=== PATIENT | male | born 1970 | race Caucasian/White ===

== ENCOUNTER → 2018-12-09 11:04 | Outpatient (CLI) | payer OTHER, SELFPAY | PROVIDERS: Visit Provider Physician Assistant | DX: R68.89 Other general symptoms and signs (principal) | CPT/HCPCS: 87400 ==

== ENCOUNTER → 2019-01-10 19:47 | Outpatient (CLI) | payer OTHER, SELFPAY | PROVIDERS: Visit Provider Physician Assistant | DX: R31.9 Hematuria, unspecified (principal) | CPT/HCPCS: 87086 ==

== ENCOUNTER 2019-01-11 03:25 | Emergency (ER) | payer OTHER, SELFPAY ==
[2019-01-11 03:39] VITALS: BP 166/92; PULSE 58; RESP 18; TEMP 36.6; O2SAT 99; BMI 29.0
--- NOTE | 2019-01-11 03:40 | ED.MALEGU ---
HPI - Male Genitourinary General Chief complaint: Urogenital-Male Stated complaint: blood in urine, pain in lower right abd Time Seen by Provider: 01/11/19 03:27 Source: patient and family Mode of arrival: ambulatory Limitations: no limitations History of Present Illness HPI Narrative: 48-year-old nonsmoker with history of kidney stones presents to the emergency department with family in the chief complaint of worsening right flank pain. The patient was seen and evaluated this evening at the walk-in clinic with chief complaint of hematuria. At the time the patient had no pain in his flank perhaps only bit of nausea. He denies fever chills and is not dizzy nor weak or lightheaded. His flank pain is rather persistent but seems to be building. It is worse when he moves and improves with rest. It does on some level remind him of prior kidney stones. Patient had urine noting leukocytes and was placed on 5 days of ciprofloxacin Onset (ago): hour(s) Duration: progressively worsening Location: right flank Severity: moderate Quality: aching Relieving factors: rest Exacerbating factors: palpation and movement Reports blood in urine Related Data Previous Rx's Medication Instructions Recorded ciprofloxacin 500 mg tablet 500 mg PO BID 5 Days #10 tab 01/10/19 ciprofloxacin HCl 500 mg PO BID #10 tab 01/11/19 hydrocodone-acetaminophen 1 tab PO Q4-6H PRN #10 tab 01/11/19 ketorolac 10 mg PO Q6H PRN #14 tab 01/11/19 ondansetron 4 mg PO TID-QID PRN #10 tab 01/11/19 tamsulosin [Flomax] 0.4 mg PO DAILY #10 cap 01/11/19 Allergies Allergy/AdvReac Type Severity Reaction Status Date / Time No Known Drug Allergies Allergy Verified 01/10/19 19:39 Review of Systems Constitutional Denies chills, Denies fever(s), Denies lethargy and Denies weakness Eyes Denies change in vision, Denies eye discharge, Denies irritation and Denies loss of vision ENT Ears, Nose, Mouth, and Throat: Denies change in voice, Denies neck pain and Denies sore throat Cardiovascular Denies chest pain, Denies irregular heart rhythm, Denies lightheadedness, Denies palpitations, Denies dyspnea, Denies dyspnea on exertion and Denies orthopnea Respiratory Denies cough, Denies dyspnea, Denies dyspnea on exertion and Denies wheezing Gastrointestinal Gastrointestinal: Denies abdominal pain, Denies change in bowel habits, Denies diarrhea, Denies nausea and Denies vomiting Genitourinary Reports hematuria, Reports flank pain, Denies urinary incontinence and Denies urinary urgency Musculoskeletal Reports back pain and Denies neck pain Integumentary/Breasts Denies pruritus, Denies erythema, Denies rash and Denies wounds Neurologic Denies confusion, Denies loss of vision and Denies weakness Psychiatric Denies anxiety, Denies confusion, Denies depression, Denies homicidal ideation and Denies suicidal ideation Endocrine Denies palpitations Hematologic/Lymphatic Denies easy bruising Allergic/Immunologic Denies wheezing PFSH Social History Smoking Status: Never smoker Social History Smoking Status: Never smoker Exam Narrative Exam Narrative: GENERAL: This is a well-nourished, well-developed patient, in mild distress. HEAD: Atraumatic. Normocephalic. No temporal or scalp tenderness. EYES: Pupils equal round and reactive. Extraocular motions intact. No scleral icterus. No injection or drainage. ENT: Nose without bleeding, purulent drainage or septal hematoma. Throat without erythema, tonsillar hypertrophy or exudate. Uvula midline. Airway patent. NECK: Trachea midline. No JVD or lymphadenopathy. Supple, nontender, no meningeal signs. CARDIOVASCULAR: Regular rate and rhythm without murmurs, gallops, or rubs. RESPIRATORY: Clear to auscultation. Breath sounds equal bilaterally. No wheezes, rales, or rhonchi. GASTROINTESTINAL: Abdomen soft, non-tender, nondistended. No hepato-splenomegaly, or palpable masses. No guarding. EXTREMITIES: No clubbing, cyanosis, or edema. No joint tenderness, effusion, or edema noted. BACK: Nontender without deformity or crepitance. Right flank pain SKIN: No rash or erythema. Initial Vital Signs Initial Vital Signs: Vital Signs Temperature 98 F 01/11/19 03:39 Pulse Rate 58 L 01/11/19 03:39 Respiratory Rate 18 01/11/19 03:39 Blood Pressure 166/92 H 01/11/19 03:39 Pulse Oximetry 99 01/11/19 03:39 Course Orders Ordered: ED Orders 01/11/19 04:09 CT kidney ureter bladder (KUB) Stat 01/11/19 04:10 Basic Metabolic Panel Stat Complete Blood Count AUTO DIFF Stat Discontinued Medications Sodium Chloride (Normal Saline 0.9%) 1,000 mls @ 1,000 mls/hr IV BOLUS ONE Stop: 01/11/19 04:55 Last Infusion: 01/11/19 05:05 Dose: 1,000 mls/hr Admin: 01/11/19 04:05 Dose: 1,000 mls/hr Ketorolac Tromethamine (Toradol) 15 mg IV NOW ONE Stop: 01/11/19 03:57 Last Admin: 01/11/19 04:05 Dose: 15 mg Vital Signs - 8 hr 01/11/19 03:39 01/11/19 05:05 Temperature 98 F Pulse Rate 58 L 59 L Respiratory Rate 18 15 Blood Pressure 166/92 H 154/92 H Pulse Oximetry 99 100 MDM - Male Genitourinary Lab Data Result diagrams: 01/11/19 04:10 01/11/19 04:10 Lab Results 01/11/19 01/11/19 Range/Units 04:10 04:10 WBC 6.7 (4.5-11.0) X10^3/uL RBC 4.80 (4.5-5.9) X10^6/uL Hgb 14.9 (13.5-17.5) g/dL Hct 43.4 (41-53) % MCV 90.4 (80-100) fL MCH 31.1 (26-34) PG MCHC 34.4 (30-36) % RDW 13.9 (11.6-14.8) % Plt Count 161 (150-400) X10^3/uL Neut % (Auto) 61.5 (50-75) % Lymph % (Auto) 25.0 (25-40) % Esmeralda % (Auto) 10.6 (3-14) % Eos % (Auto) 2.3 (2-4) % Baso % (Auto) 0.6 (0-2) % Neut # (Auto) 4100 (9821-7449) /uL Lymph # (Auto) 1700 (9260-6588) /uL Esmeralda # (Auto) 700 (0-900) /uL Eos # (Auto) 200 (0-450) /uL Baso # (Auto) 0 (0-100) /uL Sodium 141 (137-145) mmol/L Potassium 3.9 (3.4-5.1) mmol/L Chloride 105 (98-107) mmol/L Carbon Dioxide 28 (22-32) mmol/L BUN 12 (9-20) mg/dL Creatinine 1.00 (0.66-1.25) mg/dL Estimated GFR > 60.0 (>60) mL/min BUN/Creatinine Ratio 12.0 (6-22) Glucose 105 H (70-100) mg/dL Calcium 9.5 (8.4-10.2) mg/dL Imaging Data CT scan - abdomen: Radiologist's impression: 2 mm obstructing stone in the right distal ureter Discharge Plan Departure Patient Disposition: Home Clinical Impression: Kidney calculi Urinary tract infection Qualifiers: Urinary tract infection type: site unspecified Hematuria presence: with hematuria Qualified Code(s): N39.0 - Urinary tract infection, site not specified Discharge Date/Time: 01/11/19 05:05 Interventions: ED Discharge Assessment Last Done: 01/11/19 05:05 Instructions: DI for Kidney Stones Activity Restrictions/Additional Instructions: *You have been diagnosed with [ kidney stone and UTI ] *What to do: *Take medications as directed: Multiple prescriptions have been electronically transmitted to [facility] at your request *Follow up with your primary care provider in 2-3 days, call for an appointment. Let them know you were seen in the Emergency Department and that we ask that you be seen in follow up *Return to ER if you should have any new, worsening or concerning symptoms You have been prescribed narcotic medications. While on these medications you cannot drive or operate heavy machinery. Additionally you cannot sign legal documents or perform any duties such as this. 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 Please understand that we cannot provide further refills of narcotics or controlled substances through the ED and your pain management will need to be through your Primary Care Provider Prescriptions: New tamsulosin [Flomax] 0.4 mg capsule 0.4 mg PO DAILY Qty: 10 RF: 0 hydrocodone-acetaminophen 5-325 mg tablet 1 tab PO Q4-6H PRN (Reason: pain) Qty: 10 RF: 0 ketorolac 10 mg tablet 10 mg PO Q6H PRN (Reason: pain) Qty: 14 RF: 0 ondansetron 4 mg tablet,disintegrating 4 mg PO TID-QID PRN (Reason: nausea and vomiting) Qty: 10 RF: 0 ciprofloxacin HCl 500 mg tablet 500 mg PO BID Qty: 10 RF: 0 No Action ciprofloxacin HCl 500 mg tablet 500 mg PO BID 5 Days Qty: 10 RF: 0
[2019-01-11] MEDS: KETOROLAC 60 MG/2 ML VIAL 15 MG IV (04:05)
[2019-01-11] MEDS: SODIUM CHLORIDE 0.9% 1,000 ML 1000 ML IV (04:05)
--- NOTE | 2019-01-11 04:09 | DI.CT.S_ITS ---
PROCEDURE: CT KIDNEY URETER BLADDER (KUB) INDICATIONS: severe Right lower quadrant/flank pain TECHNIQUE: Noncontrast 5 mm thick sections acquired from the diaphragms to the symphysis. 5 mm thick coronal and sagittal reformats were then performed. For radiation dose reduction, the following was used: automated exposure control, adjustment of mA and/or kV according to patient size. COMPARISON: None. FINDINGS: Image quality: Excellent. Lung bases: No pulmonary infiltrate. There is a 3 mm subpleural lung nodule in the left lower lobe (series 3 image 1). Heart size is normal. There is a tiny hiatal hernia. Urinary system: A 2.5 mm stone is present in the distal right ureter at the uterovesical junction. There is mild right hydronephrosis and perinephric stranding. There are 3 2-4 mm nonobstructive stone in the left kidney. Both kidneys are normal in size. Both ureters appear non-dilated throughout their expected courses. Bladder wall thickness is normal; no calcified bladder stones. Enlarged prostate. Other solid organs: Liver is normal in size. Gallbladder is normal. Pancreas is normal in contours. Spleen is normal in size. A small splenule is noted. No adrenal nodules. Peritoneum and bowel: Unenhanced bowel loops demonstrate normal wall thickness and caliber. The appendix is normal. No free fluid or air. Mild mesenteric stranding. Nodes and vessels: No retroperitoneal or mesenteric adenopathy by size criteria. Aorta and inferior vena cava are normal in caliber. Abdominal wall: No ventral hernias. Pelvis: No free pelvic fluid. No inguinal hernias or adenopathy. Bones: No suspicious bony lesions. No vertebral body compression fractures. IMPRESSION: 1. A 2.5 mm nonobstructive stone in the distal right ureter at the ureterovesical junction. There is mild right hydronephrosis and perinephric stranding. 2. Three small nonobstructive left renal calculi. No left hydronephrosis. 3. Normal appendix. 4. A 3 mm subpleural nodule in the left lower lobe. Please see enclosed followup recommendation. 5. Enlarged prostate. No significant discrepancy with the night warehouse selector radiology preliminary report. Fleischner Society criteria for SOLID lung nodule followup. Nodule size (mm)Low-risk patientHigh-risk patient?4No follow-up neededFollow-up at 12 mo; if no change, no further follow-up>[id number] CT at 12 mo; if no change, no further follow-up needed.Initial follow-up CT at 6-12 mo, then 18-24 mo if no change. >6-8Initial follow-up CT at 6-12 mo, then 18-24 mo if no change. Initial follow-up CT at 3-6 mo, then 9-12 mo and 24 mo if no change. >8Follow-up CT at 3, 9, 24 mo. Or PET and/or biopsy.Same as for low-risk pts. Dictated by: James Thakur M.D. on 01/11/2019 at 7:57 Approved by: James Thakur M.D. on 01/11/2019 at 8:24
--- NOTE | 2019-01-11 04:15 | ED_ITS ---
HPI - Male Genitourinary General Chief complaint: Urogenital-Male Stated complaint: blood in urine, pain in lower right abd Time Seen by Provider: 01/11/19 03:27 Source: patient and family Mode of arrival: ambulatory Limitations: no limitations History of Present Illness HPI Narrative: 48-year-old nonsmoker with history of kidney stones presents to the emergency department with family in the chief complaint of worsening right flank pain. The patient was seen and evaluated this evening at the walk-in clinic with chief complaint of hematuria. At the time the patient had no pain in his flank perhaps only bit of nausea. He denies fever chills and is not dizzy nor weak or lightheaded. His flank pain is rather persistent but seems to be building. It is worse when he moves and improves with rest. It does on some level remind him of prior kidney stones. Patient had urine noting leukocytes and was placed on 5 days of ciprofloxacin Onset (ago): hour(s) Duration: progressively worsening Location: right flank Severity: moderate Quality: aching Relieving factors: rest Exacerbating factors: palpation and movement Reports blood in urine Related Data Previous Rx's Medication Instructions Recorded ciprofloxacin 500 mg tablet 500 mg PO BID 5 Days #10 tab 01/10/19 ciprofloxacin HCl 500 mg PO BID #10 tab 01/11/19 hydrocodone-acetaminophen 1 tab PO Q4-6H PRN #10 tab 01/11/19 ketorolac 10 mg PO Q6H PRN #14 tab 01/11/19 ondansetron 4 mg PO TID-QID PRN #10 tab 01/11/19 tamsulosin [Flomax] 0.4 mg PO DAILY #10 cap 01/11/19 Allergies Allergy/AdvReac Type Severity Reaction Status Date / Time No Known Drug Allergies Allergy Verified 01/10/19 19:39 Review of Systems Constitutional Denies chills, Denies fever(s), Denies lethargy and Denies weakness Eyes Denies change in vision, Denies eye discharge, Denies irritation and Denies loss of vision ENT Ears, Nose, Mouth, and Throat: Denies change in voice, Denies neck pain and Denies sore throat Cardiovascular Denies chest pain, Denies irregular heart rhythm, Denies lightheadedness, Denies palpitations, Denies dyspnea, Denies dyspnea on exertion and Denies orthopnea Respiratory Denies cough, Denies dyspnea, Denies dyspnea on exertion and Denies wheezing Gastrointestinal Gastrointestinal: Denies abdominal pain, Denies change in bowel habits, Denies diarrhea, Denies nausea and Denies vomiting Genitourinary Reports hematuria, Reports flank pain, Denies urinary incontinence and Denies urinary urgency Musculoskeletal Reports back pain and Denies neck pain Integumentary/Breasts Denies pruritus, Denies erythema, Denies rash and Denies wounds Neurologic Denies confusion, Denies loss of vision and Denies weakness Psychiatric Denies anxiety, Denies confusion, Denies depression, Denies homicidal ideation and Denies suicidal ideation Endocrine Denies palpitations Hematologic/Lymphatic Denies easy bruising Allergic/Immunologic Denies wheezing PFSH Social History Smoking Status: Never smoker Social History Smoking Status: Never smoker Exam Narrative Exam Narrative: GENERAL: This is a well-nourished, well-developed patient, in mild distress. HEAD: Atraumatic. Normocephalic. No temporal or scalp tenderness. EYES: Pupils equal round and reactive. Extraocular motions intact. No scleral icterus. No injection or drainage. ENT: Nose without bleeding, purulent drainage or septal hematoma. Throat without erythema, tonsillar hypertrophy or exudate. Uvula midline. Airway patent. NECK: Trachea midline. No JVD or lymphadenopathy. Supple, nontender, no meningeal signs. CARDIOVASCULAR: Regular rate and rhythm without murmurs, gallops, or rubs. RESPIRATORY: Clear to auscultation. Breath sounds equal bilaterally. No wheezes, rales, or rhonchi. GASTROINTESTINAL: Abdomen soft, non-tender, nondistended. No hepato- splenomegaly, or palpable masses. No guarding. EXTREMITIES: No clubbing, cyanosis, or edema. No joint tenderness, effusion, or edema noted. BACK: Nontender without deformity or crepitance. Right flank pain SKIN: No rash or erythema. Initial Vital Signs Initial Vital Signs: Vital Signs Temperature 98 F 01/11/19 03:39 Pulse Rate 58 L 01/11/19 03:39 Respiratory Rate 18 01/11/19 03:39 Blood Pressure 166/92 H 01/11/19 03:39 Pulse Oximetry 99 01/11/19 03:39 Course Orders Ordered: ED Orders 01/11/19 04:09 CT kidney ureter bladder (KUB) Stat 01/11/19 04:10 Basic Metabolic Panel Stat Complete Blood Count AUTO DIFF Stat Discontinued Medications Sodium Chloride (Normal Saline 0.9%) 1,000 mls @ 1,000 mls/hr IV BOLUS ONE Stop: 01/11/19 04:55 Last Infusion: 01/11/19 05:05 Dose: 1,000 mls/hr Admin: 01/11/19 04:05 Dose: 1,000 mls/hr Ketorolac Tromethamine (Toradol) 15 mg IV NOW ONE Stop: 01/11/19 03:57 Last Admin: 01/11/19 04:05 Dose: 15 mg Vital Signs - 8 hr 01/11/19 03:39 01/11/19 05:05 Temperature 98 F Pulse Rate 58 L 59 L Respiratory Rate 18 15 Blood Pressure 166/92 H 154/92 H Pulse Oximetry 99 100 MDM - Male Genitourinary Lab Data Result diagrams: 01/11/19 04:10 01/11/19 04:10 Lab Results 01/11/19 01/11/19 Range/Units 04:10 04:10 WBC 6.7 (4.5-11.0) X10^3/uL RBC 4.80 (4.5-5.9) X10^6/uL Hgb 14.9 (13.5-17.5) g/dL Hct 43.4 (41-53) % MCV 90.4 (80-100) fL MCH 31.1 (26-34) PG MCHC 34.4 (30-36) % RDW 13.9 (11.6-14.8) % Plt Count 161 (150-400) X10^3/uL Neut % (Auto) 61.5 (50-75) % Lymph % (Auto) 25.0 (25-40) % Ashe % (Auto) 10.6 (3-14) % Eos % (Auto) 2.3 (2-4) % Baso % (Auto) 0.6 (0-2) % Neut # (Auto) 4100 (6542-4128) /uL Lymph # (Auto) 1700 (0776-5832) /uL Ashe # (Auto) 700 (0-900) /uL Eos # (Auto) 200 (0-450) /uL Baso # (Auto) 0 (0-100) /uL Sodium 141 (137-145) mmol/L Potassium 3.9 (3.4-5.1) mmol/L Chloride 105 (98-107) mmol/L Carbon Dioxide 28 (22-32) mmol/L BUN 12 (9-20) mg/dL Creatinine 1.00 (0.66-1.25) mg/dL Estimated GFR > 60.0 (>60) mL/min BUN/Creatinine Ratio 12.0 (6-22) Glucose 105 H (70-100) mg/dL Calcium 9.5 (8.4-10.2) mg/dL Imaging Data CT scan - abdomen: Radiologist's impression: 2 mm obstructing stone in the right distal urete r Discharge Plan Departure Patient Disposition: Home Clinical Impression: Kidney calculi Urinary tract infection Qualifiers: Urinary tract infection type: site unspecified Hematuria presence: with hematuria Qualified Code(s): N39.0 - Urinary tract infection, site not specified Discharge Date/Time: 01/11/19 05:05 Interventions: ED Discharge Assessment Last Done: 01/11/19 05:05 Instructions: DI for Kidney Stones Activity Restrictions/Additional Instructions: *You have been diagnosed with [ kidney stone and UTI ] *What to do: *Take medications as directed: Multiple prescriptions have been electronically transmitted to [facility] at your request *Follow up with your primary care provider in 2-3 days, call for an ap pointment. Let them know you were seen in the Emergency Department and that we ask that you be seen in follow up *Return to ER if you should have any new, worsening or concerning symptoms You have been prescribed narcotic medications. While on these medications you cannot drive or operate heavy machinery. Additionally you cannot sign legal documents or perform any duties such as this. 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 Please understand that we cannot provide further refills of narcotics or controlled substances through the ED and your pain management will need to be through your Primary Care Provider Prescriptions: New tamsulosin [Flomax] 0.4 mg capsule 0.4 mg PO DAILY Qty: 10 RF: 0 hydrocodone-acetaminophen 5-325 mg tablet 1 tab PO Q4-6H PRN (Reason: pain) Qty: 10 RF: 0 ketorolac 10 mg tablet 10 mg PO Q6H PRN (Reason: pain) Qty: 14 RF: 0 ondansetron 4 mg tablet,disintegrating 4 mg PO TID-QID PRN (Reason: nausea and vomiting) Qty: 10 RF: 0 ciprofloxacin HCl 500 mg tablet 500 mg PO BID Qty: 10 RF: 0 No Action ciprofloxacin HCl 500 mg tablet 500 mg PO BID 5 Days Qty: 10 RF: 0
[2019-01-11 04:26] LABS: Add Manual Diff / Slide Review NO; Basophils Absolute Auto 0 /uL (0-100); Basophils Percent Auto 0.6 % (0-2); Eosinophils Absolute Auto 200 /uL (0-450); Eosinophils Percent Auto 2.3 % (2-4); Hematocrit 43.4 % (41-53); Hemoglobin 14.9 g/dL (13.5-17.5); Lymphocytes Absolute Auto 1700 /uL (1100-4500); Mean Corpuscular HGB Conc 34.4 % (30-36); Mean Corpuscular Hemoglobin 31.1 PG (26-34); Mean Corpuscular Volume 90.4 fL (80-100); Monocytes Absolute Auto 700 /uL (0-900); Monocytes Percent Auto 10.6 % (3-14); Neutrophils Absolute Auto 4100 /uL (1500-7000); Neutrophils Percent Auto 61.5 % (50-75); Platelet Count 161 X10^3/uL (150-400); Red Cell Distribution Width 13.9 % (11.6-14.8); White Blood Cell Count 6.7 X10^3/uL (4.5-11.0)
[2019-01-11 04:32] LABS: Blood Urea Nitrogen 12 mg/dL (9-20); Calcium 9.5 mg/dL (8.4-10.2); Carbon Dioxide 28 mmol/L (22-32); Chloride 105 mmol/L (98-107); Estimated Glomerular Filt Rate > 60.0 mL/min (>60); Glucose 105 mg/dL (70-100); HEMOLYSIS 16 (0-50); Potassium 3.9 mmol/L (3.4-5.1); Sodium 141 mmol/L (137-145)
[2019-01-11 05:05] VITALS: BP 154/92; PULSE 59; RESP 15; O2SAT 100
--- NOTE | 2019-01-13 19:24 | PC.NURSE ---
Spoke with patient on the phone, states he had been called from [facility]. This RN could not find any record of pt being called from ED. Pt had previously been seen at the Walk-in, instructed him to call them in the morning. Also answered additional questions. Encouraged pt to be seen at by primary for a follow up. Pt happy with questions being addressed.
== END 2019-01-11 05:05 | disposition home or self-care (01) ==
PROVIDERS: Emergency Provider Emergency Medicine
DX: N20.0 Calculus of kidney (principal); N39.0 Urinary tract infection, site not specified
CPT/HCPCS: 36591; 74176; 80048; 85025; 96361; 96374; 99283; 99284; J1885

== ENCOUNTER 2019-07-12 00:26 | Emergency (ER) | payer OTHER, SELFPAY ==
[2019-07-12 00:35] VITALS: BP 183/94; PULSE 77; RESP 15; TEMP 36.8; O2SAT 96; BMI 28.1
--- NOTE | 2019-07-12 00:41 | ED.BACK ---
HPI - Back Pain/Injury General Chief Complaint: Back Pain/Injury Stated Complaint: Kidney stone Time Seen by Provider: 07/12/19 00:26 Source: patient Mode of arrival: Ambulatory Limitations: no limitations History of Present Illness HPI Narrative: 48-year-old male nonsmoker with history of kidney stones presents with his in the chief complaint of sudden-onset left flank pain that started 2 hours prior to arrival. He states it was sudden onset he denies much in the way of provocation, palliation or radiation. He does say perhaps a bit worse when he ambulates but largely states it feels similar to prior kidney stones. He was last seen here in the end of December with similar complaints and had a CT noting a 2 mm stone. He denies fever chills but did have 1 episode of vomiting thought secondary to pain. MD Complaint: back pain Onset (ago): hour(s) Duration: intermittent Similar Symptoms Previously: Yes Location: left flank Severity: severe Quality: sharp Radiation: none Relieving factors: none Exacerbating factors: movement Treatments prior to arrival: prescription analgesics Related Data Previous Rx's Medication Instructions Recorded ciprofloxacin HCl 500 mg PO BID #10 tab 01/11/19 hydrocodone-acetaminophen 1 tab PO Q4-6H PRN #10 tab 01/11/19 ketorolac 10 mg PO Q6H PRN #14 tab 01/11/19 ondansetron 4 mg PO TID-QID PRN #10 tab 01/11/19 tamsulosin [Flomax] 0.4 mg PO DAILY #10 cap 01/11/19 hydrocodone-acetaminophen 1 tab PO Q4-6H PRN #10 tab 07/12/19 ketorolac 10 mg PO Q6H PRN #14 tab 07/12/19 tamsulosin [Flomax] 0.4 mg PO DAILY #10 cap 07/12/19 Allergies Allergy/AdvReac Type Severity Reaction Status Date / Time No Known Drug Allergies Allergy Verified 01/10/19 19:39 Review of Systems Constitutional Constitutional: Denies chills, Denies fatigue, Denies fever(s), Denies frequent falls, Denies lethargy and Denies weakness Eyes Eyes: Denies change in vision, Denies eye discharge, Denies irritation and Denies loss of vision ENT Ears, Nose, Mouth, and Throat: Denies change in voice, Denies dizziness, Denies neck pain, Denies sore throat and Denies throat swelling Cardiovascular Cardiovascular: Denies chest pain, Denies irregular heart rhythm, Denies lightheadedness, Denies palpitations, Denies dyspnea, Denies dyspnea on exertion and Denies orthopnea Respiratory Respiratory: Denies cough, Denies dyspnea, Denies dyspnea on exertion and Denies wheezing Gastrointestinal Gastrointestinal: Denies abdominal pain, Denies change in bowel habits, Denies diarrhea, Denies nausea and Denies vomiting Genitourinary Genitourinary: Denies hematuria, Reports flank pain, Denies urinary incontinence and Denies urinary urgency Musculoskeletal Musculoskeletal: Denies back pain, Denies muscle weakness, Denies neck pain, Denies numbness and Denies tingling Integumentary/Breasts Skin/Breast: Denies pruritus, Denies erythema, Denies rash and Denies wounds Neurologic Neurologic: Denies behavioral changes, Denies confusion, Denies dizziness, Denies frequent falls, Denies loss of vision, Denies numbness, Denies tingling and Denies weakness Psychiatric Psychiatric: Denies anxiety, Denies behavioral changes, Denies confusion, Denies depression, Denies homicidal ideation and Denies suicidal ideation Endocrine Endocrine: Denies fatigue, Denies flushing and Denies palpitations Hematologic/Lymphatic Hematologic/Lymphatic: Denies easy bruising Allergic/Immunologic Allergic/Immunologic: Denies urticaria, Denies throat swelling and Denies wheezing PFSH Social History Smoking Status: Never smoker Social History Smoking Status: Never smoker Exam Narrative Exam Narrative: GENERAL: [48] year old patient appears stated age. Well-nourished, well-developed patient, in mild distress. Obviously uncomfortable, rubbing his left flank HEAD: Atraumatic. Normocephalic. EYES: Pupils equal round and reactive. Extraocular motions intact. No scleral icterus. No injection or drainage. ENT: Nose without bleeding, purulent drainage. Throat without erythema, tonsillar hypertrophy or exudate. Airway patent. NECK: Trachea midline. Non tender CARDIOVASCULAR: Regular rate and rhythm without murmurs, gallops, or rubs. RESPIRATORY: Clear to auscultation. Breath sounds equal bilaterally. No wheezes, rales, or rhonchi. GASTROINTESTINAL: Abdomen soft, non-tender, nondistended. EXTREMITIES: No edema or joint tenderness. BACK: Nontender without deformity or crepitance. No flank tenderness. NEURO: AOx3. SKIN: No rash or erythema of visible areas Initial Vital Signs Initial Vital Signs: Vital Signs Temperature 98.2 F 07/12/19 00:35 Pulse Rate 77 07/12/19 00:35 Respiratory Rate 15 07/12/19 00:35 Blood Pressure 183/94 H 07/12/19 00:35 Pulse Oximetry 96 07/12/19 00:35 Course Orders Ordered: ED Orders 07/12/19 00:45 Basic Metabolic Panel Stat Complete Blood Count AUTO DIFF Stat Discontinued Medications Sodium Chloride (Normal Saline 0.9%) 1,000 mls @ 1,000 mls/hr IV BOLUS ONE Stop: 07/12/19 01:39 Last Infusion: 07/12/19 01:31 Dose: 0 mls/hr Documented by: Admin: 07/12/19 00:49 Dose: 1,000 mls/hr Documented by: VANITA Sodium Chloride (Normal Saline 0.9%) 1,000 mls @ 1,000 mls/hr IV BOLUS ONE Stop: 07/12/19 02:46 Last Infusion: 07/12/19 02:48 Dose: 0 mls/hr Documented by: Admin: 07/12/19 01:48 Dose: 1,000 mls/hr Documented by: VANITA Lidocaine HCl 6.1 ml/ Sodium (Chloride) 56.1 mls @ 336.6 mls/hr IV NOW ONE Stop: 07/12/19 02:19 Ketorolac Tromethamine (Toradol) 15 mg IV NOW ONE Stop: 07/12/19 00:41 Last Admin: 07/12/19 00:48 Dose: Not Given Documented by: VANITA Ketorolac Tromethamine (Toradol) 15 mg IV NOW ONE Stop: 07/12/19 00:48 Last Admin: 07/12/19 00:49 Dose: 15 mg Documented by: VANITA Ondansetron HCl (Zofran) 4 mg IV NOW ONE Stop: 07/12/19 00:41 Last Admin: 07/12/19 00:48 Dose: 4 mg Documented by: HGUBERN Vital Signs Vital signs: Vital Signs - 8 hr 07/12/19 00:35 07/12/19 03:13 Temperature 98.2 F Pulse Rate 77 78 Respiratory Rate 15 15 Blood Pressure 183/94 H 148/87 H Pulse Oximetry 96 96 MDM - Back Pain/Injury Lab Data Result diagrams: 07/12/19 00:45 07/12/19 00:45 Labs: Lab Results 07/12/19 07/12/19 Range/Units 00:45 00:45 WBC 9.9 (4.5-11.0) X10^3/uL RBC 4.74 (4.5-5.9) X10^6/uL Hgb 14.8 (13.5-17.5) g/dL Hct 43.2 (41-53) % MCV 91.1 (80-100) fL MCH 31.3 (26-34) PG MCHC 34.3 (30-36) % RDW 13.6 (11.6-14.8) % Plt Count 187 (150-400) X10^3/uL Neut % (Auto) 64.4 (50-75) % Lymph % (Auto) 23.7 L (25-40) % [place] % (Auto) 9.6 (3-14) % Eos % (Auto) 1.8 L (2-4) % Baso % (Auto) 0.5 (0-2) % Neut # (Auto) 6400 (8729-3734) /uL Lymph # (Auto) 2300 (6463-6496) /uL [place] # (Auto) 900 (0-900) /uL Eos # (Auto) 200 (0-450) /uL Baso # (Auto) 100 (0-100) /uL Sodium 140 (137-145) mmol/L Potassium 3.9 (3.4-5.1) mmol/L Chloride 103 (98-107) mmol/L Carbon Dioxide 29 (22-32) mmol/L BUN 16 (9-20) mg/dL Creatinine 1.30 H (0.66-1.25) mg/dL Estimated GFR 58.4 L (>60) mL/min BUN/Creatinine Ratio 12.3 (6-22) Glucose 132 H (70-100) mg/dL Calcium 9.2 (8.4-10.2) mg/dL Urine Dip Bedside Urine Glucose Negative Bedside Urine Bilirubin - Negative Bedside Urine Ketone - Negative Urine Specific [place] 1.030 Bedside Urine Occult Blood - Negative Bedside Urine pH 6.0 Bedside Urine Protein +/- 15 Bedside Urine Urobilinogen - Negative Bedside Urine Nitrite - Negative Bedside Urine Leukocytes - Negative Esterase MDM Narrative Medical decision making narrative: 48-year-old male with sudden onset left flank pain, known history of kidney stones. He denies provocation, palliation admits to some mild radiation around his flank over the course of the visit. He got better with Toradol. We discussed the utility of advanced imaging and elect to hold off for now given rather classic presentation and expected response to medications. He has been given return precautions and had questions answered to his apparent satisfaction Discharge Plan Departure Patient Disposition: Home Clinical Impression: Renal colic Discharge Date/Time: 07/12/19 03:14 Instructions: Kidney Stones -- Adult Activity Restrictions/Additional Instructions: *You have been diagnosed with [flank pain, most likely kidney stone] *What to do: *Take medications as directed *Follow up with your primary care provider in 2-3 days, call for an appointment. Let them know you were seen in the Emergency Department and that we ask that you be seen in follow up *Return to ER if you should have any new, worsening or concerning symptoms Prescriptions: New tamsulosin [Flomax] 0.4 mg capsule 0.4 mg PO DAILY Qty: 10 RF: 0 hydrocodone-acetaminophen 5-325 mg tablet 1 tab PO Q4-6H PRN (Reason: pain) Qty: 10 RF: 0 ketorolac 10 mg tablet 10 mg PO Q6H PRN (Reason: pain) Qty: 14 RF: 0 No Action tamsulosin [Flomax] 0.4 mg capsule 0.4 mg PO DAILY Qty: 10 RF: 0 hydrocodone-acetaminophen 5-325 mg tablet 1 tab PO Q4-6H PRN (Reason: pain) Qty: 10 RF: 0 ketorolac 10 mg tablet 10 mg PO Q6H PRN (Reason: pain) Qty: 14 RF: 0 ondansetron 4 mg tablet,disintegrating 4 mg PO TID-QID PRN (Reason: nausea and vomiting) Qty: 10 RF: 0 ciprofloxacin HCl 500 mg tablet 500 mg PO BID Qty: 10 RF: 0
[2019-07-12] MEDS: ONDANSETRON 4 MG/2 ML INJ IV (00:48)
[2019-07-12] MEDS: SODIUM CHLORIDE 0.9% 1,000 ML 1000 ML IV ×2 (00:49→01:48)
[2019-07-12] MEDS: KETOROLAC 60 MG/2 ML VIAL 15 MG IV (00:49)
[2019-07-12 00:57] LABS: Add Manual Diff / Slide Review NO; Basophils Absolute Auto 100 /uL (0-100); Basophils Percent Auto 0.5 % (0-2); Eosinophils Absolute Auto 200 /uL (0-450); Eosinophils Percent Auto 1.8 % (2-4); Hematocrit 43.2 % (41-53); Hemoglobin 14.8 g/dL (13.5-17.5); Lymphocytes Absolute Auto 2300 /uL (1100-4500); Lymphocytes Percent Auto 23.7 % (25-40); Mean Corpuscular HGB Conc 34.3 % (30-36); Mean Corpuscular Hemoglobin 31.3 PG (26-34); Mean Corpuscular Volume 91.1 fL (80-100); Monocytes Absolute Auto 900 /uL (0-900); Monocytes Percent Auto 9.6 % (3-14); Neutrophils Absolute Auto 6400 /uL (1500-7000); Neutrophils Percent Auto 64.4 % (50-75); Platelet Count 187 X10^3/uL (150-400); Red Blood Cell Count 4.74 X10^6/uL (4.5-5.9); Red Cell Distribution Width 13.6 % (11.6-14.8); White Blood Cell Count 9.9 X10^3/uL (4.5-11.0)
[2019-07-12 01:04] LABS: BUN Creatinine Ratio 12.3 (6-22); Blood Urea Nitrogen 16 mg/dL (9-20); Calcium 9.2 mg/dL (8.4-10.2); Carbon Dioxide 29 mmol/L (22-32); Chloride 103 mmol/L (98-107); Estimated Glomerular Filt Rate 58.4 mL/min (>60); Glucose 132 mg/dL (70-100); HEMOLYSIS 23 (0-50); Potassium 3.9 mmol/L (3.4-5.1); Sodium 140 mmol/L (137-145)
[2019-07-12 03:13] VITALS: BP 148/87; PULSE 78; RESP 15; O2SAT 96
--- NOTE | 2019-07-15 09:10 | PC.NURSE ---
Pt called stating he feels well but still has blood in his urine and flank pain. Has had on and off fever to be rechecked.
== END 2019-07-12 03:14 | disposition home or self-care (01) ==
PROVIDERS: Emergency Provider Emergency Medicine
DX: N23 Unspecified renal colic (principal)
CPT/HCPCS: 36415; 80048; 81003; 85025; 96361; 96374; 96375; 99283; 99284; J1885; J2405

== ENCOUNTER 2019-07-15 10:09 | Emergency (ER) | payer OTHER, SELFPAY ==
[2019-07-15 10:30] VITALS: BP 171/95; PULSE 72; RESP 15; TEMP 36.6; O2SAT 100; BMI 28.8
[2019-07-15 10:41] LABS: Bacteria Urine None Seen; WBC Urine None Seen (0-5/HPF)
[2019-07-15 10:50] LABS: RBC Urine 1-5/HPF (0-5/HPF)
[2019-07-15 10:51] LABS: Culture Indicated Urine Cult Not Indicated; Squamous Epithelial Cell Urine 0-1 /HPF (0-5/HPF)
--- NOTE | 2019-07-15 10:58 | ED.MALEGU ---
HPI - Male Genitourinary General Chief complaint: Urogenital-Male Stated complaint: Kidney stones Time Seen by Provider: 07/15/19 10:49 Source: patient Mode of arrival: Ambulatory History of Present Illness HPI Narrative: Patient is a 48-year-old male who presents with left-sided flank pain. He has a history of kidney stones he was seen evaluated here 3 nights ago with the same thought to be kidney stone no imaging was done at that time. However it does not be moving or radiating around to his front. He continues to have blood in his urine. He denies any nausea or vomiting. He does have pain medication at home seems to be helping. Worried that this stone is not moving and might be large. Related Data Previous Rx's Medication Instructions Recorded tamsulosin [Flomax] 0.4 mg PO DAILY #10 cap 01/11/19 hydrocodone-acetaminophen 1 tab PO Q4-6H PRN #10 tab 07/12/19 ketorolac 10 mg PO Q6H PRN #14 tab 07/12/19 Allergies Allergy/AdvReac Type Severity Reaction Status Date / Time No Known Drug Allergies Allergy Verified 07/15/19 10:30 Review of Systems Review of Systems Narrative: GENERAL: Denies chills, fatigue, malaise, fever, sweats, travel HEENT: Denies sinus pain, ear pain, sore throat, difficulty swallowing, neck pain RESPIRATORY: Denies dyspnea, cough, wheezing, hemoptysis, sputum. CARDIOVASCULAR: Denies chest pain, palpitations, orthopnea, edema GASTROINTESTINAL: Denies nausea, vomiting, abdominal pain, diarrhea, constipation, melena. : see HPI MUSCULOSKELETAL: Denies weakness, joint pain, or bony pain SKIN: No rash, no erythema, no pruritus NEUROLOGIC: Denies weakness, dizziness, headache, numbness, change in speech, confusion PSYCHIATRIC: No concerning psychosocial issues. 12 point review of systems is negative except for those stated above and HPI PFSH Medical History Kidney stones (Acute) Social History Smoking Status: Never smoker Social History Smoking Status: Never smoker Exam Initial Vital Signs Initial Vital Signs: Vital Signs Temperature 97.8 F 07/15/19 10:30 Pulse Rate 72 07/15/19 10:30 Respiratory Rate 15 07/15/19 10:30 Blood Pressure 171/95 H 07/15/19 10:30 Pulse Oximetry 100 07/15/19 10:30 GENERAL: Sitting comfortable reading a magazine. HEENT: Head atraumatic,EOMI, pupils reactive, face symmetric, [moist] mucous membranes CARDIOVASCULAR: Regular rate and rhythm without murmurs, rubs or gallops. RESPIRATORY: Breath sounds equal bilaterally, no wheezes rales or rhonchi. ABDO minimal left CVA tenderness EXTREMITIES: Normal range of motion, no clubbing or edema. Neurovascularly intact NEUROLOGICAL: Alert and oriented x4.Normal gait and speech. Cranial nerves II through XII grossly intact. SKIN: Warm, dry, no laceration, no petechiae, no rashes or lesions. Course Orders Ordered: ED Orders 07/15/19 10:40 Urine Microscopic Stat 07/15/19 11:11 CT kidney ureter bladder (KUB) Stat 07/15/19 11:25 Complete Blood Count AUTO DIFF Stat Comprehensive Metabolic Panel Stat Lipase Stat Partial Thromboplastin Time Stat Prothrombin Time INR Stat Vital Signs Vital signs: Vital Signs - 8 hr 07/15/19 12:12 Pulse Rate 68 Respiratory Rate 15 Pulse Oximetry 99 MDM - Male Genitourinary Lab Data Attestation: I reviewed the patient's lab results. Result diagrams: 07/15/19 11:25 07/15/19 11:25 Labs: Lab Results 07/15/19 07/15/19 07/15/19 Range/Units 01:35 10:40 11:25 WBC 7.2 (4.5-11.0) X10^3/uL RBC 4.56 (4.5-5.9) X10^6/uL Hgb 14.3 (13.5-17.5) g/dL Hct 41.5 (41-53) % MCV 91.0 (80-100) fL MCH 31.3 (26-34) PG MCHC 34.4 (30-36) % RDW 13.6 (11.6-14.8) % Plt Count 170 (150-400) X10^3/uL Neut % (Auto) 65.2 (50-75) % Lymph % (Auto) 22.0 L (25-40) % [place] % (Auto) 9.9 (3-14) % Eos % (Auto) 2.5 (2-4) % Baso % (Auto) 0.4 (0-2) % Neut # (Auto) 4700 (5341-9470) /uL Lymph # (Auto) 1600 (1666-3769) /uL [place] # (Auto) 700 (0-900) /uL Eos # (Auto) 200 (0-450) /uL Baso # (Auto) 0 (0-100) /uL PT (10.1-12.7) SECONDS INR (0.9-1.3) APTT (26.4-36.2) SECONDS Sodium Cancelled Potassium Cancelled Chloride Cancelled Carbon Dioxide Cancelled BUN Cancelled Creatinine Cancelled Estimated GFR Cancelled BUN/Creatinine Ratio Cancelled Glucose Cancelled Calcium Cancelled Total Bilirubin (0.2-1.3) mg/dL AST (17-59) IU/L ALT (21-72) IU/L Alkaline Phosphatase (38-126) U/L Total Protein (6.3-8.2) g/dL Albumin (3.5-5.0) g/dL Globulin (1.7-4.1) g/dL Albumin/Globulin Ratio (1.0-2.8) Lipase (23-300) U/L Urine RBC 1-5/hpf (0-5/HPF) Urine WBC None seen (0-5/HPF) Ur Squamous Epith Cells 0-1 /hpf (0-5/HPF) Urine Bacteria None seen (None) Ur Culture Indicated? Cult not indicated 07/15/19 07/15/19 07/15/19 Range/Units 11:25 11:25 11:25 WBC (4.5-11.0) X10^3/uL RBC (4.5-5.9) X10^6/uL Hgb (13.5-17.5) g/dL Hct (41-53) % MCV (80-100) fL MCH (26-34) PG MCHC (30-36) % RDW (11.6-14.8) % Plt Count (150-400) X10^3/uL Neut % (Auto) (50-75) % Lymph % (Auto) (25-40) % [place] % (Auto) (3-14) % Eos % (Auto) (2-4) % Baso % (Auto) (0-2) % Neut # (Auto) (1243-4151) /uL Lymph # (Auto) (5097-0108) /uL [place] # (Auto) (0-900) /uL Eos # (Auto) (0-450) /uL Baso # (Auto) (0-100) /uL PT 11.8 (10.1-12.7) SECONDS INR 1.0 (0.9-1.3) APTT 33 (26.4-36.2) SECONDS Sodium 143 Cancelled Potassium 4.3 Cancelled Chloride 106 Cancelled Carbon Dioxide 28 Cancelled BUN 12 Cancelled Creatinine 1.00 Cancelled Estimated GFR > 60.0 Cancelled BUN/Creatinine Ratio 12.0 Cancelled Glucose 95 Cancelled Calcium 9.5 Cancelled Total Bilirubin 0.6 (0.2-1.3) mg/dL AST 73 H (17-59) IU/L ALT 90 H (21-72) IU/L Alkaline Phosphatase 68 (38-126) U/L Total Protein 7.2 (6.3-8.2) g/dL Albumin 4.2 (3.5-5.0) g/dL Globulin 3.0 (1.7-4.1) g/dL Albumin/Globulin Ratio 1.4 (1.0-2.8) Lipase 422 H (23-300) U/L Urine RBC (0-5/HPF) Urine WBC (0-5/HPF) Ur Squamous Epith Cells (0-5/HPF) Urine Bacteria (None) Ur Culture Indicated? Urine Dip Bedside Urine Glucose Negative Bedside Urine Bilirubin - Negative Bedside Urine Ketone - Negative Urine Specific [place] 1.015 Bedside Urine Occult Blood ++ Bedside Urine pH 6.5 Bedside Urine Protein +/- 15 Bedside Urine Urobilinogen - Negative Bedside Urine Nitrite - Negative Bedside Urine Leukocytes - Negative Esterase Imaging Data CT scan - abdomen: Radiologist's impression: PROCEDURE: CT KIDNEY URETER BLADDER (KUB) INDICATIONS: Left flank pain. Gross hematuria TECHNIQUE: Noncontrast 5 mm thick sections acquired from the diaphragms to the symphysis. 5 mm thick coronal and sagittal reformats were then performed. For radiation dose reduction, the following was used: automated exposure control, adjustment of mA and/or kV according to patient size. COMPARISON: [facility], CT, CT KIDNEY URETER BLADDER (KUB), 01/11/2019, 4:12. FINDINGS: Image quality: Excellent. Lung bases: Lung bases are clear. Stable 3 mm subpleural nodule in the left lung base. Heart size is normal. Urinary system: Right kidney: Vague calcifications may represent renal tubular acidosis. No hydronephrosis. Right ureter: The previous 2 mm distal ureter stone is no longer present. Left kidney: There is a nonobstructing 3 x 5 mm middle pole stone. No hydronephrosis. Vague calyceal region calcifications may represent renal tubular acidosis. Left ureter: Nondilated. There is a 1 mm stone in the distal left ureter just above the ureterovesical junction. Bladder: There is a 1 mm stone which has just passed from the distal ureter into the bladder. There is also a 2 mm stone near midline in the bladder. This also likely represents a recently passed ureteral stone. There is no bladder wall thickening. Other solid organs: Liver is normal in size. Gallbladder is unremarkable. Pancreas is normal in contours. Spleen is normal in size. No adrenal nodules. Peritoneum and bowel: Unenhanced bowel loops demonstrate normal wall thickness and caliber. No free fluid or air. Nodes and vessels: No retroperitoneal or mesenteric adenopathy by size criteria. Aorta and inferior vena cava are normal in caliber. Abdominal wall: No ventral hernias. Pelvis: No free pelvic fluid. Bilateral small inguinal hernias containing fat. No inguinal adenopathy. Bones: No suspicious bony lesions. No vertebral body compression fractures. Bilateral L5 pars defects without anterolisthesis of L5 on S1. IMPRESSION: 1. There is a 1 mm stone in the distal left ureter just above the ureterovesical junction. It is nonobstructive. 2. There are 2 small stones which have passed into the bladder. 3. No evidence of hydronephrosis. 4. Nonobstructing left middle pole stone. 5. Probable renal tubular acidosis. 6. Bilateral L5 pars defects. 7. Bilateral small inguinal hernias containing fat. Dictated by: Zane Montoya M.D. on 07/15/2019 at 11:15 MDM Narrative Medical decision making narrative: Patient has been comfortable in the emergency department the whole time. He has all medications at home that he needs. He was given Flomax however he only took 1 or 2 doses. I recommend that he restart that. I also recommend that he follow up with Urology seems to be having more frequent kidney stones. Kidney function is slightly worse today than previously. Creatinine today 1.3 previously 1.0, encouraged him to increase fluids. Kidney stone is nonobstructing. Discharge Plan Departure Patient Disposition: Home Clinical Impression: Kidney stones Discharge Date/Time: 07/15/19 12:13 Instructions: DI for Kidney Stones Activity Restrictions/Additional Instructions: *You have been diagnosed with kidney stone *What to do: Kidney stone left side. It appears as though you have past to already. *Continue to take medications as directed *Follow up with your primary care provider in 2-3 days *Return to ER if you should have increasing pain or any new, worsening or concerning symptoms Prescriptions: No Action tamsulosin [Flomax] 0.4 mg capsule 0.4 mg PO DAILY Qty: 10 RF: 0 hydrocodone-acetaminophen 5-325 mg tablet 1 tab PO Q4-6H PRN (Reason: pain) Qty: 10 RF: 0 ketorolac 10 mg tablet 10 mg PO Q6H PRN (Reason: pain) Qty: 14 RF: 0 Referrals: Vania Desai MD [Non-Staff] - Stuart Steele MD [Non-Staff] - Riley William DO [Primary Care Provider] -
--- NOTE | 2019-07-15 11:11 | DI.CT.S_ITS ---
PROCEDURE: CT KIDNEY URETER BLADDER (KUB) INDICATIONS: Left flank pain. Gross hematuria TECHNIQUE: Noncontrast 5 mm thick sections acquired from the diaphragms to the symphysis. 5 mm thick coronal and sagittal reformats were then performed. For radiation dose reduction, the following was used: automated exposure control, adjustment of mA and/or kV according to patient size. COMPARISON: [facility], CT, CT KIDNEY URETER BLADDER (KUB), 01/11/2019, 4:12. FINDINGS: Image quality: Excellent. Lung bases: Lung bases are clear. Stable 3 mm subpleural nodule in the left lung base. Heart size is normal. Urinary system: Right kidney: Vague calcifications may represent renal tubular acidosis. No hydronephrosis. Right ureter: The previous 2 mm distal ureter stone is no longer present. Left kidney: There is a nonobstructing 3 x 5 mm middle pole stone. No hydronephrosis. Vague calyceal region calcifications may represent renal tubular acidosis. Left ureter: Nondilated. There is a 1 mm stone in the distal left ureter just above the ureterovesical junction. Bladder: There is a 1 mm stone which has just passed from the distal ureter into the bladder. There is also a 2 mm stone near midline in the bladder. This also likely represents a recently passed ureteral stone. There is no bladder wall thickening. Other solid organs: Liver is normal in size. Gallbladder is unremarkable. Pancreas is normal in contours. Spleen is normal in size. No adrenal nodules. Peritoneum and bowel: Unenhanced bowel loops demonstrate normal wall thickness and caliber. No free fluid or air. Nodes and vessels: No retroperitoneal or mesenteric adenopathy by size criteria. Aorta and inferior vena cava are normal in caliber. Abdominal wall: No ventral hernias. Pelvis: No free pelvic fluid. Bilateral small inguinal hernias containing fat. No inguinal adenopathy. Bones: No suspicious bony lesions. No vertebral body compression fractures. Bilateral L5 pars defects without anterolisthesis of L5 on S1. IMPRESSION: 1. There is a 1 mm stone in the distal left ureter just above the ureterovesical junction. It is nonobstructive. 2. There are 2 small stones which have passed into the bladder. 3. No evidence of hydronephrosis. 4. Nonobstructing left middle pole stone. 5. Probable renal tubular acidosis. 6. Bilateral L5 pars defects. 7. Bilateral small inguinal hernias containing fat. Dictated by: Zane Montoya M.D. on 07/15/2019 at 11:15 Approved by: Zane Montoya M.D. on 07/15/2019 at 11:27
[2019-07-15 11:35] LABS: Add Manual Diff / Slide Review NO; Basophils Absolute Auto 0 /uL (0-100); Basophils Percent Auto 0.4 % (0-2); Eosinophils Absolute Auto 200 /uL (0-450); Eosinophils Percent Auto 2.5 % (2-4); Hematocrit 41.5 % (41-53); Hemoglobin 14.3 g/dL (13.5-17.5); Lymphocytes Absolute Auto 1600 /uL (1100-4500); Mean Corpuscular HGB Conc 34.4 % (30-36); Mean Corpuscular Hemoglobin 31.3 PG (26-34); Monocytes Absolute Auto 700 /uL (0-900); Monocytes Percent Auto 9.9 % (3-14); Neutrophils Absolute Auto 4700 /uL (1500-7000); Neutrophils Percent Auto 65.2 % (50-75); Platelet Count 170 X10^3/uL (150-400); Red Blood Cell Count 4.56 X10^6/uL (4.5-5.9); Red Cell Distribution Width 13.6 % (11.6-14.8); White Blood Cell Count 7.2 X10^3/uL (4.5-11.0)
[2019-07-15 11:43] LABS: Prothrombin Time 11.8 SECONDS (10.1-12.7)
[2019-07-15 11:46] LABS: PTT Partial Thromboplastin Tim 33 SECONDS (26.4-36.2)
[2019-07-15 11:48] LABS: Alanine Aminotransferase 90 IU/L (21-72); Albumin 4.2 g/dL (3.5-5.0); Albumin Globulin Ratio 1.4 (1.0-2.8); Alkaline Phosphatase 68 U/L (38-126); Aspartate Aminotransferase 73 IU/L (17-59); Bilirubin Total 0.6 mg/dL (0.2-1.3); Blood Urea Nitrogen 12 mg/dL (9-20); Calcium 9.5 mg/dL (8.4-10.2); Carbon Dioxide 28 mmol/L (22-32); Chloride 106 mmol/L (98-107); Estimated Glomerular Filt Rate > 60.0 mL/min (>60); Glucose 95 mg/dL (70-100); HEMOLYSIS < 15 (0-50); Lipase 422 U/L (23-300); Potassium 4.3 mmol/L (3.4-5.1); Sodium 143 mmol/L (137-145); Total Protein 7.2 g/dL (6.3-8.2)
[2019-07-15 12:12] VITALS: PULSE 68; RESP 15; O2SAT 99
== END 2019-07-15 12:13 | disposition home or self-care (01) ==
PROVIDERS: Emergency Provider Emergency Medicine; PCP Family Medicine
DX: N20.0 Calculus of kidney (principal)
CPT/HCPCS: 36415; 74176; 80053; 81003; 81015; 83690; 85025; 85610; 85730; 99282; 99284

== ENCOUNTER → 2020-08-05 09:37 | Outpatient (CLI) | payer OTHER, SELFPAY ==
--- NOTE | 2020-08-05 | DI.US.S_ITS ---
PROCEDURE: US SCROTUM INDICATIONS: LEFT SCROTAL SWELLING AND DISCOMFORT TECHNIQUE: Real-time scanning was performed of the scrotum and testicles, with image documentation. Color and pulse Doppler interrogation was performed of both testicles. COMPARISON: None. FINDINGS: Right: Testicle is normal in size at 4.4 x 1.9 x 3.7 cm, and homogenous in echotexture. Epididymis is normal in overall size and morphology. Epididymal cysts/spermatoceles measuring 5-6 mm No hydrocele or varicoceles. Overlying scrotal skin is normal in thickness. Left: Testicle is normal in size at 4.2 x 2.0 x 3.4 cm, and homogeneous in echotexture. Epididymis is mildly prominent in size, otherwise unremarkable. Epididymal cyst/spermatocele with debris measuring 7 mm. Simple appearing epididymal cyst or spermatocele measuring 6 mm. No hydrocele or varicoceles. Overlying scrotal skin is normal in thickness. Doppler: Color and pulse Doppler demonstrate normal and symmetric arterial flow in both testicles. IMPRESSION: Multiple epididymal cysts/spermatoceles. Otherwise, negative examination as above Dictated by: Ronald Alcazar M.D. on 08/05/2020 at 12:47 Approved by: Ronald Alcazar M.D. on 08/05/2020 at 12:49
== END ==
PROVIDERS: PCP Family Medicine; Referring Provider Physician Assistant Medical; Visit Provider Physician Assistant Medical
DX: N50.89 Other specified disorders of the male genital organs (principal); N50.3 Cyst of epididymis; N43.42 Spermatocele of epididymis, multiple
CPT/HCPCS: 76870

== ENCOUNTER 2023-02-01 00:10 | Emergency (ER) | payer OTHER, SELFPAY ==
[2023-02-01] VITALS (9 sets, daily range): BP systolic 105–146; BP diastolic 59–80; PULSE 74–80; RESP 13–22; TEMP 36.2; O2SAT 96–100; BMI 30.2
[2023-02-01] MEDS: SODIUM CHLORIDE 0.9% 1,000 ML 1000 ML IV ×2 (00:37→03:20)
[2023-02-01 00:46] LABS: Add Manual Diff / Slide Review NO; Basophils Absolute Auto 100 /uL (0-100); Basophils Percent Auto 1.4 % (0-2); Eosinophils Absolute Auto 100 /uL (0-450); Eosinophils Percent Auto 1.6 % (2-4); Hematocrit 47.4 % (41-53); Hemoglobin 16.4 g/dL (13.5-17.5); Lymphocytes Absolute Auto 400 /uL (1100-4500); Lymphocytes Percent Auto 4.1 % (25-40); Mean Corpuscular HGB Conc 34.6 % (30-36); Mean Corpuscular Hemoglobin 31.1 PG (26-34); Mean Corpuscular Volume 90.1 fL (80-100); Monocytes Absolute Auto 700 /uL (0-900); Monocytes Percent Auto 6.9 % (3-14); Neutrophils Absolute Auto 8200 /uL (1500-7000); Platelet Count 156 X10^3/uL (150-400); Red Blood Cell Count 5.25 X10^6/uL (4.5-5.9); Red Cell Distribution Width 13.9 % (11.6-14.8); White Blood Cell Count 9.6 X10^3/uL (4.5-11.0)
[2023-02-01 00:48] LABS: Lactate (Lactic Acid) 0.8 mmol/L (0.7-2.1)
[2023-02-01 00:49] LABS: Alanine Aminotransferase 74 IU/L (<50); Albumin Globulin Ratio 1.1 (1.0-2.8); Alkaline Phosphatase 72 U/L (38-126); Aspartate Aminotransferase 37 IU/L (17-59); BUN Creatinine Ratio 10.3 (6-22); Bilirubin Total 0.8 mg/dL (0.2-1.3); Blood Urea Nitrogen 15 mg/dL (9-20); Calcium 8.6 mg/dL (8.4-10.2); Carbon Dioxide 28 mmol/L (22-32); Chloride 99 mmol/L (98-107); Estimated Glomerular Filt Rate 57 mL/min (>60); Globulin 3.5 g/dL (1.7-4.1); Glucose 119 mg/dL (70-100); HEMOLYSIS < 15 (0-50); Potassium 3.3 mmol/L (3.4-5.1); Sodium 134 mmol/L (137-145); Total Protein 7.5 g/dL (6.3-8.2)
--- NOTE | 2023-02-01 02:56 | ED_ITS ---
HPI - Nausea/Vomiting/Diarrhea General Chief complaint: Nausea/Vomiting/Diarrhea Stated complaint: syncope, NVD Time Seen by Provider: 02/01/23 02:55 Source: patient Mode of arrival: Ambulatory History of Present Illness HPI Narrative: Patient is a 52-year-old male history of hypertension presenting today with diarrhea. He reports that he watched his granddaughter couple days ago who had some nausea vomiting diarrhea and then his daughter also had symptoms. He reports feeling nauseous 2 days ago no significant vomiting. Today around 9:00 a.m. he started the diarrhea. He is had known amounts of diarrhea until 9:00 p.m.. His gave him some Pepto-Bismol he took Imodium start feeling better. However this evening he felt extremely clammy he now to the floor where he passed out hitting his face. He was likely wearing his glasses he has an abrasion over his nose. He thinks he lost consciousness for just a couple minutes. He is not on any antiplatelet or anticoagulation medication. He denies any neck pain numbness tingling or weakness. Related Data Previous Rx's Medication Instructions Recorded tamsulosin 0.4 mg capsule (Flomax) 0.4 mg PO DAILY #10 caps 01/11/19 hydrocodone 5 mg-acetaminophen 325 1 tab PO Q4-6H PRN pain #10 tabs 07/12/19 mg tablet ketorolac 10 mg tablet 10 mg PO Q6H PRN pain #14 tabs 07/12/19 ondansetron 4 mg disintegrating 4 mg PO Q8H PRN nausea and 02/01/23 tablet vomiting #10 tabs Allergies Allergy/AdvReac Type Severity Reaction Status Date / Time No Known Drug Allergies Allergy Verified 07/15/19 10:30 Patient History Medical History (Updated 02/01/23 @ 04:00 by Cristina Montana DO) Kidney stones Social History Smoking Status: Never smoker Smoking Status: Never smoker Substance Use Type: does not use Exam Initial Vital Signs Initial Vital Signs: Vital Signs Temperature 97.1 F L 02/01/23 00:15 Pulse Rate 80 02/01/23 00:15 Respiratory Rate 18 02/01/23 00:15 Blood Pressure 146/80 H 02/01/23 00:15 Pulse Oximetry 99 02/01/23 00:15 Oxygen Delivery Method Room Air 02/01/23 00:15 GENERAL: Alert well-appearing 52-year-old and in [no acute] distress. HEENT: Head atraumatic,EOMI, pupils reactive, face symmetric, [moist] mucous membranes, nasal abrasion no significant laceration CARDIOVASCULAR: Regular rate and rhythm without murmurs, rubs or gallops. RESPIRATORY: Breath sounds equal bilaterally, no wheezes rales or rhonchi. ABDOMEN: Soft, nontender. Normoactive bowel sounds all 4 quadrants. No guarding or rebound. EXTREMITIES: Normal range of motion, no clubbing or edema. Neurovascularly intact NEUROLOGICAL: Alert and oriented x4.Normal gait and speech. [employer] strength equal bilaterally moving all extremities SKIN: Warm, dry, no laceration, no petechiae, no rashes or lesions. Course Orders Ordered: ED Orders 02/01/23 00:25 Complete Blood Count AUTO DIFF Stat Comprehensive Metabolic Panel Stat Lactate (Lactic Acid) Stat 02/01/23 00:36 EKG-12 Lead Stat Discontinued Medications Sodium Chloride (Normal Saline 0.9%) 1,000 mls @ 1,000 mls/hr IV BOLUS ONE Stop: 02/01/23 01:35 Last Infusion: 02/01/23 02:00 Dose: 0 mls/hr Documented By: Admin: 02/01/23 00:37 Dose: 1,000 mls/hr Documented By: KAYLA Sodium Chloride (Normal Saline 0.9%) 1,000 mls @ 1,000 mls/hr IV BOLUS ONE Stop: 02/01/23 04:13 Last Infusion: 02/01/23 03:53 Dose: 0 mls/hr Documented By: Admin: 02/01/23 03:20 Dose: 1,000 mls/hr Documented By: AP Vital Signs Vital signs: Vital Signs - 8 hr 02/01/23 00:15 02/01/23 00:32 02/01/23 01:00 Temperature 97.1 F L Pulse Rate 80 79 Respiratory Rate 18 18 Blood Pressure 146/80 H 121/68 Pulse Oximetry 99 99 Oxygen Delivery Method Room Air 02/01/23 01:00 02/01/23 01:30 02/01/23 01:30 Temperature Pulse Rate 78 79 Respiratory Rate 19 15 Blood Pressure 121/66 Pulse Oximetry 100 98 Oxygen Delivery Method 02/01/23 02:00 02/01/23 02:00 02/01/23 02:30 Temperature Pulse Rate 77 Respiratory Rate 14 Blood Pressure 115/64 109/59 L Pulse Oximetry 96 Oxygen Delivery Method 02/01/23 02:30 02/01/23 03:00 02/01/23 03:00 Temperature Pulse Rate 75 79 Respiratory Rate 13 22 Blood Pressure 105/70 Pulse Oximetry 97 97 Oxygen Delivery Method 02/01/23 03:30 02/01/23 03:30 02/01/23 04:00 Temperature Pulse Rate 74 Respiratory Rate 17 Blood Pressure 106/62 107/60 Pulse Oximetry 98 Oxygen Delivery Method 02/01/23 04:00 Temperature Pulse Rate 76 Respiratory Rate 15 Blood Pressure Pulse Oximetry 98 Oxygen Delivery Method MDM - Nausea/Vomiting/Diarrhea Lab Data 02/01/23 00:25 02/01/23 00:25 Labs: Lab Results 02/01/23 02/01/23 02/01/23 Range/Units 00:25 00:25 00:25 WBC 9.6 (4.5-11.0) X10^3/uL RBC 5.25 (4.5-5.9) X10^6/uL Hgb 16.4 (13.5-17.5) g/dL Hct 47.4 (41-53) % MCV 90.1 (80-100) fL MCH 31.1 (26-34) PG MCHC 34.6 (30-36) % RDW 13.9 (11.6-14.8) % Plt Count 156 (150-400) X10^3/uL Neut % (Auto) 86.0 H (50-75) % Lymph % (Auto) 4.1 L (25-40) % Pope % (Auto) 6.9 (3-14) % Eos % (Auto) 1.6 L (2-4) % Baso % (Auto) 1.4 (0-2) % Neut # (Auto) 8200 H (4321-9670) /uL Lymph # (Auto) 400 L (1256-1763) /uL Pope # (Auto) 700 (0-900) /uL Eos # (Auto) 100 (0-450) /uL Baso # (Auto) 100 (0-100) /uL Sodium 134 L (137-145) mmol/L Potassium 3.3 L (3.4-5.1) mmol/L Chloride 99 (98-107) mmol/L Carbon Dioxide 28 (22-32) mmol/L BUN 15 (9-20) mg/dL Creatinine 1.45 H (0.66-1.25) mg/dL Estimated GFR 57 L (>60) mL/min BUN/Creatinine Ratio 10.3 (6-22) Glucose 119 H (70-100) mg/dL Lactate 0.8 (0.7-2.1) mmol/L Calcium 8.6 (8.4-10.2) mg/dL Total Bilirubin 0.8 (0.2-1.3) mg/dL AST 37 (17-59) IU/L ALT 74 H (<50) IU/L Alkaline Phosphatase 72 (38-126) U/L Total Protein 7.5 (6.3-8.2) g/dL Albumin 4.0 (3.5-5.0) g/dL Globulin 3.5 (1.7-4.1) g/dL Albumin/Globulin Ratio 1.1 (1.0-2.8) ECG Data Interpretation: Normal sinus rhythm rate 82 MS interval 136 QRS [address] changes no T- wave inversions MDM Narrative Medical decision making narrative: Patient 52-year-old male history of hypertension presenting today with diarrhea and nausea ongoing for couple days. Had syncopal episode falling and hitting his nose. Not on any antiplatelet anticoagulation no focal deficits on exam. Sounds as though he had been dizzy sometimes throughout the day. Multiple episodes of diarrhea today. Creatinine elevated 1.45 which is more elevated previously. Prior blood work shows a creatinine 1.02 1019. He has mild hypokalemia at 3.3 likely secondary to diarrhea. No significant elevation in lactate. No evidence of leukocytosis or anemia. Patient has not had any episodes of diarrhea since 9:00 p.m.. Other family members have had similar symptoms. This is likely a gastroenteritis. Discussed oral rehydration with him. He is absolutely no abdominal pain at this time I see no need for imaging or further workup. He is given 2 L of IV fluids. He states he overall feels much better. At this time supportive care only Discharge Plan Departure Patient Disposition: Home Clinical Impression: Gastroenteritis Instructions: DI for Viral Gastroenteritis -- Adult Activity Restrictions/Additional Instructions: *You have been diagnosed with gastroenteritis *What to do: At this time recommend increasing fluid intake with Gatorade or Gatorade like product. Imodium should help stop the diarrhea and pickup is no can cause your stool to be black. *Continue to take medications as directed Zofran 4 mg every 8 hours if needed for nausea or vomiting --> [facility] *Follow up with your primary care provider in 2-3 days or call [phone] *Return to ER if you should have persistent diarrhea or vomiting in able to keep fluids in. Recurrent episode of passing out persistent dizziness [or] any new, worsening or concerning symptoms Prescriptions: New ondansetron 4 mg tablet,disintegrating 4 mg PO Q8H PRN (Reason: nausea and vomiting) Qty: 10 0RF No Action tamsulosin [Flomax] 0.4 mg capsule 0.4 mg PO DAILY Qty: 10 0RF Patient Comments: patient states stopped taking when pain went away. hydrocodone-acetaminophen 5-325 mg tablet 1 tab PO Q4-6H PRN (Reason: pain) Qty: 10 0RF ketorolac 10 mg tablet 10 mg PO Q6H PRN (Reason: pain) Qty: 14 0RF Referrals: Riley William DO [Primary Care Provider] - Stand Alone Forms: Patient Portal/API
== END 2023-02-01 04:30 | disposition home or self-care (01) ==
PROVIDERS: Emergency Provider Emergency Medicine; PCP Family Medicine
DX: K52.9 Noninfective gastroenteritis and colitis, unspecified (principal); R07.9 Chest pain, unspecified
CPT/HCPCS: 36415; 80053; 83605; 85025; 93005; 93010; 96360; 96361; 99284

== ENCOUNTER → 2025-08-21 08:33 | Outpatient (CLI) | payer OTHER, SELFPAY ==
[2025-08-21 09:26] LABS: Add Manual Diff / Slide Review NO; Hematocrit 45.6 % (41-53); Hemoglobin 15.8 g/dL (13.5-17.5); Lymphocytes Absolute Auto 1900 /uL (1100-4500); Mean Corpuscular HGB Conc 34.7 % (30-36); Mean Corpuscular Hemoglobin 31.6 PG (26-34); Mean Corpuscular Volume 90.9 fL (80-100); Platelet Count 178 X10^3/uL (150-400)
[2025-08-21 09:38] LABS: Hemoglobin A1C% w Est Avg Glu 5.3 % (4.0-6.0)
[2025-08-21 09:59] LABS: Alanine Aminotransferase 118 IU/L (<50); Albumin 4.4 g/dL (3.5-5.0); Albumin Globulin Ratio 1.6 (1.0-2.8); Alkaline Phosphatase 73 U/L (38-126); Blood Urea Nitrogen 22 mg/dL (9-20); Calcium 9.6 mg/dL (8.4-10.2); Carbon Dioxide 27 mmol/L (22-32); Chloride 105 mmol/L (98-107); Cholesterol 241 mg/dL (140-199); Estimated Glomerular Filt Rate > 60 mL/min (>60); Globulin 2.7 g/dL (1.7-4.1); Glucose 90 mg/dL (70-99); HDL Cholesterol 54 mg/dL (40-60); HEMOLYSIS < 15 (0-50); Magnesium 1.9 mg/dL (1.6-2.3); Potassium 4.3 mmol/L (3.4-5.1); Sodium 139 mmol/L (137-145); Total Protein 7.1 g/dL (6.3-8.2); Triglycerides 104 mg/dL (35-150)
[2025-08-21 10:31] LABS: TSH w/ Reflex to FT4 1.32 uIU/mL (0.47-4.68)
[2025-08-21 10:33] LABS: Ferritin 131 ng/mL (18-464)
== END ==
PROVIDERS: PCP Family Medicine; Referring Provider Family Medicine; Visit Provider Family Medicine
DX: Z13.1 Encounter for screening for diabetes mellitus (principal); R25.1 Tremor, unspecified; I10 Essential (primary) hypertension; E78.00 Pure hypercholesterolemia, unspecified; N20.0 Calculus of kidney; R33.9 Retention of urine, unspecified; Z84.2 Family history of other diseases of the genitourinary system
CPT/HCPCS: 36415; 80053; 80061; 82728; 83036; 83735; 84443; 85025

== ENCOUNTER → 2025-09-04 15:48 | Outpatient (CLI) | payer OTHER, SELFPAY ==
--- NOTE | 2025-09-04 15:49 | DI.US.S_ITS ---
PROCEDURE: US ABDOMEN LIMITED INDICATIONS: CHRONIC ELEVATED LIVER ENZYMES X 20 YEARS TECHNIQUE: Real-time scanning was performed of the abdominal and retroperitoneal organs, with image documentation. COMPARISON: None. FINDINGS: Liver: Mildly heterogeneous and mildly hyperechoic liver parenchyma. No mass, intrahepatic biliary dilation or cirrhosis. Gallbladder: No gallstones. No wall thickening. No pericholecystic edema. Negative sonographic Burr's sign. Biliary ducts: Intrahepatic bile ducts are non-dilated. Extrahepatic bile duct caliber measures 3 mm. Common bile duct is not well seen. Normal is 6-7 mm or less in diameter, or 10 mm or less post-cholecystectomy. Pancreas: Mostly obscured by bowel gas. Miscellaneous: No free abdominal fluid. Study limited due to bowel gas. IMPRESSION: Study limited by bowel gas. Mildly heterogeneous and mildly hyperechoic liver parenchyma may represent underlying liver disease or fatty infiltration. No mass, intrahepatic biliary dilation or cirrhosis. Normal gallbladder and CBD. Limited visualization of the pancreas. Dictated by: Araceli Rae M.D. on 09/05/2025 at 13:18 Approved by: Araceli Rae M.D. on 09/05/2025 at 13:21
== END ==
LOC: US 15:48
PROVIDERS: PCP Family Medicine; Referring Provider Family Medicine; Visit Provider Family Medicine
DX: R74.8 Abnormal levels of other serum enzymes (principal)
CPT/HCPCS: 76705